=== PATIENT | female | born 1970 | race Caucasian/White ===

== ENCOUNTER 2018-06-17 08:43 | Outpatient (CLI) | payer BC, SELFPAY ==
--- NOTE | 2018-07-16 16:00 | MMO ---
Bilateral MAMMO Bilat Screen DDI+DEISY. CLINICAL HISTORY: Patient is 48 years old and is seen for screening. The patient has no family history of breast cancer. The patient has no personal history of cancer. VIEWS: The views performed were: bilateral craniocaudal with tomosynthesis; bilateral mediolateral oblique with tomosynthesis; and bilateral exaggerated craniocaudal. FILMS COMPARED: The present examination has been compared to prior imaging studies performed at [facility] on 04/21/2016 and 05/18/2016. MAMMOGRAM FINDINGS: There are scattered fibroglandular densities. Finding 1: There are stable benign appearing calcifications seen in both breasts. Finding 2: There is a new round mass measuring 7 millimeters with circumscribed margins seen in the MLO view only seen in the upper-outer region of the right breast. IMPRESSION: FINDING 1: STABLE CALCIFICATIONS IN BOTH BREASTS ARE BENIGN. FINDING 2: NEW MASS IN THE RIGHT BREAST REQUIRES ADDITIONAL EVALUATION. ADDITIONAL PROJECTIONS (RIGHT CRANIOCAUDAL SPOT COMPRESSION; RIGHT MEDIOLATERAL OBLIQUE SPOT COMPRESSION; AND RIGHT MEDIOLATERAL) ARE RECOMMENDED. AN ULTRASOUND EXAM IS RECOMMENDED IF NEEDED. ADDITIONAL IMAGING. THE RESULTS OF THIS EXAM WERE SENT TO THE PATIENT. ACR BI-RADS Category 0 - Incomplete: Need additional imaging evaluation. [facility] will notify the patient of the need for additional imaging services. MAMMOGRAPHY NOTE: 1. A negative mammogram report should not delay a biopsy if a dominant of clinically suspicious mass is present. 2. Approximately 10% to 15% of breast cancers are not detected by mammography. 3. Adenosis and dense breasts may obscure an underlying neoplasm.
== END 2018-06-17 08:44 | disposition home or self-care (01) ==
LOC: BICMAMMO 08:43
PROVIDERS: ATTEND Obstetrics & Gynecology
DX: Z12.31 Encounter for screening mammogram for malignant neoplasm of breast (principal); R92.1 Mammographic calcification found on diagnostic imaging of breast; N63.10 Unspecified lump in the right breast, unspecified quadrant
CPT/HCPCS: 77063; 77067

== ENCOUNTER 2018-07-22 14:31 | Outpatient (CLI) | payer BC ==
--- NOTE | 2018-07-22 15:49 | MMO ---
Right Breast MAMMO Unilat Diag DDI RT+DEISY. CLINICAL HISTORY: Patient is 48 years old and is seen for diagnostic exam. The patient has no family history of breast cancer. The patient has no personal history of cancer. VIEWS: The views performed were: right mediolateral oblique spot compression with tomosynthesis and right mediolateral with tomosynthesis. FILMS COMPARED: The present examination has been compared to prior imaging studies performed at [facility] on 06/17/2018 and 07/22/2018, and at [facility] on 04/21/2016 and 05/18/2016. MAMMOGRAM FINDINGS: There are scattered fibroglandular densities. There is a low density, oval mass with circumscribed margins seen in the right breast at 9 o'clock. This demonstrates mammographic and sonographic findings compatible with an intramammary lymph node. There are no suspicious masses, suspicious calcifications, or new areas of architectural distortion. IMPRESSION: THERE IS NO MAMMOGRAPHIC EVIDENCE OF MALIGNANCY. A ROUTINE FOLLOW-UP MAMMOGRAM IN 1 YEAR IS RECOMMENDED. THE RESULTS OF THIS EXAM WERE SENT TO THE PATIENT. ACR BI-RADS Category 2 - Benign finding MAMMOGRAPHY NOTE: 1. A negative mammogram report should not delay a biopsy if a dominant of clinically suspicious mass is present. 2. Approximately 10% to 15% of breast cancers are not detected by mammography. 3. Adenosis and dense breasts may obscure an underlying neoplasm.
--- NOTE | 2018-07-22 15:52 | ULT ---
LIMITED RIGHT BREAST ULTRASOUND: DATE: 07/22/2018. PROVIDED CLINICAL HISTORY: Abnormal mammogram. FINDINGS: Limited sonographic interrogation was performed of the right breast in the region of mammographic con cern. An intramammary lymph node is seen in this location, corresponding to the mammogram finding. IMPRESSION: BIRADS category 2 - benign findings. Annual screening mammography recommended. POS: OFF
== END 2018-07-22 14:32 | disposition home or self-care (01) ==
LOC: BICMAMMO 14:31
PROVIDERS: ATTEND Obstetrics & Gynecology
DX: N63.10 Unspecified lump in the right breast, unspecified quadrant (principal)
CPT/HCPCS: G0279

== ENCOUNTER 2018-08-06 09:29 | Outpatient (CLI) | payer BC ==
--- NOTE | 2018-08-06 10:23 | RAD ---
EXAM: Upper GI HISTORY: Weight gain. History of gastric sleeve procedure in the past. COMPARISON: 09/25/2008 EXPOSURE: 1.7 minutes; 19.517 Gy per centimeter squared FINDINGS: A double contrast upper GI was performed. Esophageal motility is normal. No mucosal lesions are seen in the esophagus. No extrinsic compression on the esophagus is seen. No hiatal hernia. Severe gastroesophageal reflux to the level of the cervical esophagus. The stomach is small but larger than on the prior examination immediately following her gastric sleev e. The contrast passes through the stomach into the duodenum without difficulty. The duodenum is normal in appearance without focal abnormality. IMPRESSION: 1. Smaller than normal stomach but the gastric sleeve appears to have expanded compared to the immedi ate postoperative exam. 2. Severe gastroesophageal reflux disease
== END 2018-08-06 09:30 | disposition home or self-care (01) ==
LOC: RAD 09:29
PROVIDERS: ATTEND Surgery
DX: K21.9 Gastro-esophageal reflux disease without esophagitis (principal)
CPT/HCPCS: 74247

== ENCOUNTER 2018-09-30 08:51 | Outpatient (CLI) | payer BC | END 2018-09-30 08:52 | disposition home or self-care (01) | LOC: LABBT 08:51 | PROVIDERS: ATTEND Obstetrics & Gynecology | DX: Z01.810 Encounter for preprocedural cardiovascular examination (principal) | CPT/HCPCS: 93005; 93010 ==

== ENCOUNTER 2018-09-30 09:00 | Inpatient (IN) | payer BC ==
[2018-09-30 09:18] VITALS: BMI 38.9
[2018-09-30 10:39] LABS: Hemoglobin 14.3 g/dL (12.0-16.0); Mean Corpuscular HGB CONC 34.2 g/dL (32.0-36.0); Mean Corpuscular Hemoglobin 30.5 pg (27.0-31.0); Mean Corpuscular Volume 89.1 fL (78.0-98.0); Mean Platelet Volume 7.8 fL (7.4-10.4); Platelet Count 250 thou/uL (130-400); RBC Distribution Width 11.3 % (11.5-14.5); Red Blood Cell (RBC) Count 4.69 mill/uL (4.20-5.40); White Blood Cell (WBC) Count 7.1 thou/uL (4.8-10.8)
--- NOTE | 2018-09-30 23:40 | HP ---
ANTICIPATED DATE OF SURGERY: In the morning on 10/01/2018. HISTORY OF PRESENT ILLNESS: Ms. Stevens is a 48-year-old white female, G2, P1, A1, prior , tubal ligation, and myomectomy of the uterus for uterine fibroid. She has been having increasing heavy menstrual bleeding over the past year and has noted uterine fibroids, which have persistently grown. She is desiring a definitive surgical therapy for this. She has very heavy flow at times, where she saturates a pad in less than an hour, and she is also having pelvic discomfort due to the pelvic pressure from the uterine fibroids. She has maternal aunt with ovarian cancer and desires removal of her tubes and ovaries at this measure too. PAST MEDICAL HISTORY: 1. She has had a recent cardiac ablation for inappropriate sinus tachycardia by Dr. Rice at [facility] on 09/09/2018. 2. She has also anxiety. PAST SURGICAL HISTORY: 1. She had 360-degree L5-S1 fusion with anterior abdominal approach in [address] Cole. 2. in 2004 by myself. 3. Myomectomy open in [address] Chatterjee in [facility]. 4. Tonsillectomy. 5. Adenoidectomy. 6. Ragland teeth. 7. Gastric sleeve. FAMILY HISTORY: Hypertension in her maternal aunt and uncle and grandmother. Coronary artery disease in a maternal aunt, maternal uncle, and her mother. Malignant tumor stomach in her father. SOCIAL HISTORY: Nonsmoker. No excessive alcohol use. CURRENT MEDICATIONS: 1. Alprazolam 0.25 mg p.o. t.i.d. 2. Corlanor 5 mg b.i.d. 3. Fluoxetine 20 mg daily. 4. Estradiol 2 mg daily. 5. Progesterone 100 mg daily. 6. DHEA slow-release 5 mg per day. 7. Testosterone cream vaginally daily. 8. Iron 29 mg daily. 9. CoQ10 of 50 mg daily. 10. Flaxseed 2 g daily. 11. Magnesium 500 mg daily. 12. Vitamin D 5000 units daily. PHYSICAL EXAMINATION: VITAL SIGNS: Her height is 5 feet 3 inches, weight is 219 pounds, BMI 38.8. Blood pressure 114/78, pulse 85, respirations 18, O2 saturation on room air 99%. HEENT: Within normal limits. CHEST: Clear to auscultation. HEART: Regular rate and rhythm. S1 and S2 heart sounds. No murmurs, rubs, or gallops. ABDOMEN: Soft, nontender. She has a around her old Pfannenstiel incision site. Well-healed trocar sites in the upper abdomen noted from her gastric sleeve. PELVIC: Vulva, vagina had no lesions. Cervix had no lesions. Uterus was 14 week size. It was mobile, irregular, consistent with fibroids. There was no cervical lesion seen. EXTREMITIES: Nontender. No masses or abnormal swelling. ASSESSMENT: This is a 48-year-old white female, G2, P1, A1 with symptomatic 14-week uterine fibroids with multiple abdominal surgeries in the past. PLAN: Plan is to proceed with robotic TLH-BSO with procedure for removal of the uterus. She is aware of the possibility and need for an open laparotomy with QUINTIN-BSO. Risks and benefits of procedure had been discussed in detail. She is set for surgery on 10/01/2018. Job ID: [id number]
[2018-10-01] MEDS ORDERED: Gabapentin 300 MG CAP ONE (06:20)
[2018-10-01] MEDS ORDERED: CeleCOXIB 100 MG CAP ONE (06:21)
[2018-10-01] MEDS ORDERED: Famotidine/PF 20 mg/2ml Vial ONE (06:21)
[2018-10-01] MEDS ORDERED: ceFAZolin Sodium (SDC) 2 GM/100 ML BAG ONE (06:21)
[2018-10-01] MEDS ORDERED: Bupivacaine HCl 0.5%/Epinephrine 1:200,000/PF 30 ml Vial ONE (06:33)
[2018-10-01] MEDS ORDERED: Midazolam HCl 2 mg/2 ml Vial ONE ×2 (06:37→07:18)
[2018-10-01] MEDS ORDERED: Fentanyl 100 MCG/2 ML VIAL ONE ×4 (06:37→11:41)
[2018-10-01] MEDS ORDERED: Promethazine HCl 25 MG/ML VIAL SLOW IVP PRN (10:12)
[2018-10-01] MEDS ORDERED: Ondansetron HCl/PF 4 MG/2 ML Vial IVP PRN (10:12)
[2018-10-01] MEDS ORDERED: Promethazine HCl 25 MG/ML VIAL IM PRN ×2 (10:12→10:18)
[2018-10-01] MEDS ORDERED: Bisacodyl 10 MG SUPP PR PRN (10:18)
[2018-10-01] MEDS ORDERED: Simethicone Chewable 80 MG TAB PO PRN (10:18)
[2018-10-01] MEDS ORDERED: traMADol HCl 50 MG TAB PO PRN (10:18)
[2018-10-01] MEDS ORDERED: diphenhydrAMINE 25 MG CAP PO PRN (10:18)
[2018-10-01] MEDS ORDERED: Ondansetron PF 4 MG/2 ML Vial IVP PRN (10:18)
[2018-10-01] MEDS ORDERED: Morphine 4 MG/ML VIAL SLOW IVP PRN (10:18)
[2018-10-01] MEDS ORDERED: Promethazine HCl 25 MG/ML VIAL ONE (10:52)
--- NOTE | 2018-10-01 12:20 | OP ---
DATE OF PROCEDURE: 10/01/2018 PREOPERATIVE DIAGNOSES: 1. A 48-year-old white female, G2, P1, A1, prior section and myomectomy with symptomatic 12-to 14-week uterine fibroids. 2. Menorrhagia for fibroids. 3. Prior anterior abdominal approach for lower spine fusion and multiple other abdominal surgeries. POSTOPERATIVE DIAGNOSES: 1. A 48-year-old white female, G2, P1, A1, prior section and myomectomy with symptomatic 12-to 14-week uterine fibroids. 2. Menorrhagia for fibroids. 3. Prior anterior abdominal approach for lower spine fusion and multiple other abdominal surgeries. PROCEDURES PERFORMED: Robotic total laparoscopic hysterectomy with bilateral salpingo-oophorectomy along with ExCITE procedure for removal of the uterine tissue. PROTECTION OFFICER SURGEON: Ap King DO, MS ANESTHESIA: General endotracheal. ESTIMATED BLOOD LOSS: 25 mL. COMPLICATIONS: None. COUNTS: Correct x2. ANTIBIOTICS: 2 g of Ancef, on-call to OR. PATHOLOGY: Uterus, cervix, bilateral tubes and ovaries. FINDINGS: 1. Normal-appearing bilateral fallopian tubes and ovaries. 2. A 12-week irregular-shaped uterus consistent with uterine myoma. 3. Clear urine present in Zarco catheter postprocedure and bladder was watertight to distention over 300 mL postprocedure. 4. Bilateral ureteral peristalsis noted postprocedure. DISPOSITION: Recovery room, stable. DESCRIPTION OF PROCEDURE: The patient previously received informed consent in regard to surgery. She was taken back to the operating room, where she received general endotracheal anesthetic agent without complications. She was placed in the dorsal lithotomy position with use of Amrik stirrups and prepped and draped in usual sterile fashion. Zarco catheter was placed at this time and a side-arm speculum was placed in the vagina. Anterior lip of the cervix was grasped with single-tooth tenaculum. Uterus sounded to 11 cm. A size 10-cm ALYSSA uterine manipulator with 3.5 cm cuff was then placed in usual fashion. Attention was then turned to the abdomen, where perspective trocar sites were infiltrated with 0.5% Marcaine with epinephrine. A 2.5 cm supraumbilical abdominal midline incision was made. This carried down to the fascia. Veress needle was then entered into the abdomen and the patient's pressure was less than 5 mm. Abdomen was insufflated with the patient's pressure of 15 approximately 4 L of carbon dioxide gas. A 12-mm trocar was then placed. The laparoscope was introduced through the trocar sleeve confirming proper entry. There was no significant adhesions noted. Then, additional bilateral lower quadrant 8-mm robotic trocars were placed along with a right upper quadrant 11-mm bioinformatics assistant port. We then extended the fascial defect in the midline abdominal incision approximately 2.5 cm and then the small Oracio O retractor was placed along with a GelPOINT cap. The trocar for the laparoscope was introduced through the gel prior to this and attached. A prepared medium size Aces bag had been folded in accordion-shaped fold and sutured and this had been placed in the right upper quadrant for the tissue removal later for the procedure. The patient was in deep Trendelenburg and the laparoscope was then introduced through the GelPOINT trocar sleeve. The robot was then docked in usual fashion. I proceeded to carry out the surgery from the operative console while my assistants remained at the bedside. At this time, the RaftOut uterine manipulator elevated the uterus from the pelvis. My bioinformatics assistant grasped the left fallopian tube. Course of the ureter was noted to be inferior from the operative site. Bipolar fenestrated cautery was utilized to coagulate the left infundibulopelvic ligament, was transected with monopolar scissors. Serial coagulation hugging close to uterus was carried out with the bipolar fenestrated cautery and monopolar scissors until the left round ligament was reached. It was coagulated and transected and anterior leaf of the broad ligament was entered. The skeletonization of the uterine vessels was also carried out at this time, dropping the ureter more lateral to waive towards the pelvic sidewall away from the specimen. An atraumatic plane of the bladder was delineated by distending the bladder and the position was noted due to previous section. The vesicouterine peritoneum was incised under direct visualization and layering of this was carried out, dropping the bladder safely past the cervical vaginal angle in junction which was visualized with the indentation of the cervical manipulator cup. The uterine vessels after having been skeletonized were then coagulated in the internal cervical os region with bipolar fenestrated cautery. This was then carried down in like-apodaca manner on the right side of the uterus. Again, the right IP ligament was coagulated and transected. Serial coagulation of broad ligament to the right round ligament was carried out and coagulated, transected. Anterior leaf of the broad ligament was entered. Vesicouterine peritoneum was again incised in similar fashion and in layering technique dropping the bladder well past the cervical vaginal margin and again the vessels of the uterine arteries were skeletonized and then coagulated in the internal cervical os region. The bladder had been distended intermittently during this time and was noted to be watertight through all. Once we felt the bladder had been safely dissected past the planned anterior colpotomy, the anterior colpotomy was then created over the cervical cup indentation starting at 12 o'clock to 3 o'clock and the vessels again were coagulated for hemostasis in this area at 12 o'clock to 9 o'clock position. Then, the uterus was flipped forward and the posterior colpotomy was completed from 6 o'clock to 3 o'clock and 6 o'clock to 9 o'clock. Hemostasis on the cuff line was noted to be hemostatic in the vessels during this time. The specimen was then taken off the ALYSSA uterine manipulator as the bulb was deflated. The ALYSSA uterine manipulator was brought out into the vaginal vault and the balloon of the ALYSSA manipulator was reinflated keeping the pneumoperitoneum. Monopolar scissor was switched out for a needle production truck driver. A Stratafix suture was brought down into the pelvis by my bioinformatics assistant. Cauterization of any areas of oozing and bleeding on the vaginal cuff were carried out at this time securing hemostasis on the cuff line. The cuff of the vagina was then closed in full-thickness closure starting on the right angle and then back towards the left angle and then towards the midline, securing hemostasis. The excess suture and needle were then removed through the right upper quadrant bioinformatics assistant port. Pelvis again was irrigated to suction and noted to be hemostatic. Bilateral ureteral peristalsis was visualized. The bladder was draining clear urine and was watertight to distention. Next, the Aces bag that had previously been folded repaired. The right upper quadrant was brought down into the pelvis. My bioinformatics assistant then cut the stay sutures, opening the bag. We then placed the specimen inside the Aces bag and the previously tied loop with string was brought through closing in a purse closure technique. My bioinformatics assistant then brought in an atraumatic grasper through the GelPOINT and has grasped the drawstring of the Aces bag and brought that up towards the port of the GelPOINT midline abdominal incision. I then broke from the surgical console and re-gowned and then we undocked the robot. We brought the Aces bag up through the GelPOINT aperture, which had been opened. The bag containing the specimen was then delivered through the GelPOINT trocar. We then replaced the small Aces retractor inside the bag to protect it during the morcellation process. The specimen was then grasped with Reece thyroid clamps and in a seat incision technique, the specimen was delivered in toto and sent for final pathology. The bag remained intact and was delivered through the fascial defect. The small Aces retractor was then removed. The fascia was then closed after grasping the superior edge with a Elpidio clamp. 0 Vicryl suture in running continuous fashion closed the fascial defect in the midline vertical portion of the abdomen. Subcuticular suture was then used to close all the skin incisions along with Dermabond. The vaginal exam with the sponge stick revealed hemostasis in the vaginal region. The patient was awakened from anesthesia and transferred to recovery room in stable condition. Job ID: [id number]
[2018-10-01] MEDS: Ketorolac Tromethamine 30 MG/ML VIAL IVP SCH ×2 (13:05→18:34)
[2018-10-01] MEDS: Lactated Ringer's 1,000 ML IV SCH ×2 (14:59→22:00)
[2018-10-01] MEDS: ALPRAZolam 0.25 MG TAB PO PRN (15:55)
[2018-10-01] MEDS: Ivabradine 5 MG TAB PO SCH (17:00)
[2018-10-01] MEDS ORDERED: ALPRAZolam 0.25 MG TAB PO SCH (19:30)
[2018-10-01] MEDS ORDERED: FLUoxetine HCl 20 MG CAP PO SCH (19:30)
[2018-10-01] MEDS ORDERED: Magnesium Oxide 250 MG TAB PO SCH (21:00)
[2018-10-01] MEDS: Ubidecarenone 50 MG CAP PO SCH (21:29)
[2018-10-01] MEDS: traMADol HCl 50 MG TAB PO PRN (22:17)
[2018-10-02] MEDS ORDERED: Sodium Chloride 0.9% 10 ML ONE (00:38)
[2018-10-02] MEDS: ALPRAZolam 0.25 MG TAB PO PRN ×2 (00:49→06:28)
[2018-10-02] MEDS: Ketorolac Tromethamine 30 MG/ML VIAL IVP SCH ×2 (00:50→06:28)
[2018-10-02 04:30] LABS: Hemoglobin 12.2 g/dL (12.0-16.0); Mean Corpuscular HGB CONC 35.6 g/dL (32.0-36.0); Mean Corpuscular Hemoglobin 32.3 pg (27.0-31.0); Mean Corpuscular Volume 90.8 fL (78.0-98.0); Mean Platelet Volume 7.7 fL (7.4-10.4); Platelet Count 209 thou/uL (130-400); RBC Distribution Width 11.2 % (11.5-14.5); Red Blood Cell (RBC) Count 3.77 mill/uL (4.20-5.40); White Blood Cell (WBC) Count 8.5 thou/uL (4.8-10.8)
[2018-10-02] MEDS: traMADol HCl 50 MG TAB PO PRN (04:37)
[2018-10-02 05:56] VITALS: BP 111/67; TEMP 97.8
[2018-10-02] MEDS: Lactated Ringer's 1,000 ML IV SCH (07:41)
[2018-10-02] MEDS: Ubidecarenone 50 MG CAP PO SCH (07:43)
[2018-10-02] MEDS: Ivabradine 5 MG TAB PO SCH (07:44)
[2018-10-02] MEDS ORDERED: [UNRECOGNIZED DRUG - OTHER] PO SCH (09:00)
[2018-10-02] MEDS ORDERED: DHEA PO SCH (09:00)
[2018-10-02] MEDS ORDERED: FLAXSEED OIL 2000 MG PO SCH (09:00)
[2018-10-02] MEDS ORDERED: Ferrous Sulfate 325 MG TAB PO SCH (09:00)
[2018-10-02] MEDS ORDERED: FLUoxetine HCl 20 MG CAP PO SCH (09:00)
[2018-10-02] MEDS ORDERED: [UNRECOGNIZED DRUG - OTHER] VAG SCH (09:00)
[2018-10-02] MEDS ORDERED: Multivit, Therapeutic 1 TAB PO SCH (09:00)
[2018-10-02] MEDS ORDERED: Estradiol 1 MG TAB PO SCH (09:00)
--- NOTE | 2018-10-02 12:22 | DIS ---
DATE OF ADMISSION: 10/01/2018 DATE OF DISCHARGE: 10/02/2018 DIAGNOSES: 1. Symptomatic 12-to 14-week uterine fibroids. 2. Menorrhagia and pelvic pain. SUMMARY OF HOSPITAL COURSE: Ms. Stevens is a 48-year-old female with long history of uterine fibroids, which worsened with heavy bleeding and pelvic discomfort. She underwent definitive surgical therapy on 10/01/2018. She had a robotic total laparoscopic hysterectomy and bilateral salpingo-oophorectomy via removal of tissue with ExCITE procedure. The patient has done well postoperatively. She was ambulating and voiding without difficulty in the evening of postop day 0. Pain control was adequately controlled with oral pain medications. She was discharged in the morning of postop day #1. Vital signs are stable. Hematocrit is 35%. She has excellent urine output and pain control with oral ibuprofen and tramadol as needed. Pathology is pending at the time of this dictation. She has a followup in 2 and 6 weeks postoperatively. Job ID: [id number]
== END 2018-10-02 08:20 | disposition home or self-care (01) | DRG 743 ==
LOC: SURG A 10-01 05:55 → 3SE 10-01 12:09
PROVIDERS: ADMIT Obstetrics & Gynecology; ATTEND Obstetrics & Gynecology
PROC: 0UT94ZZ Resection of Uterus, Percutaneous Endoscopic Approach (ICD-10-PCS; principal; 2018-10-01)
PROC: 0UT24ZZ Resection of Bilateral Ovaries, Percutaneous Endoscopic Approach (ICD-10-PCS; 2018-10-01)
PROC: 0UT74ZZ Resection of Bilateral Fallopian Tubes, Percutaneous Endoscopic Approach (ICD-10-PCS; 2018-10-01)
PROC: 8E0W4CZ Robotic Assisted Procedure of Trunk Region, Percutaneous Endoscopic Approach (ICD-10-PCS; 2018-10-01)
DX: D25.9 Leiomyoma of uterus, unspecified (principal); Z98.51 Tubal ligation status; Z79.899 Other long term (current) drug therapy; Z79.890 Hormone replacement therapy
CPT/HCPCS: 36415; 85027; 86850; 86900; 86901; 88307; 93005; 93010; J0670; J0690; J1885; J2250; J2550; J3010; S0028

== ENCOUNTER 2020-06-15 08:27 | Observation (INO) | payer BC, OTHER ==
[2020-06-15 09:16] LABS: #Basophils 0.1 thou/uL (0.0-0.2); #Eosinphils 0.3 thou/uL (0.0-0.7); #Lymphocytes 1.7 thou/uL (1.20-3.40); #Monocytes 0.3 thou/uL (0.11-0.59); #Neutrophils 2.2 thou/uL (1.40-6.50); %Basophils 1.7 % (0.0-1.0); %Eosinophils 5.7 % (0.0-10.0); %Lymphocytes 37.5 % (21.0-51.0); %Monocytes 6.3 % (0.0-10.0); %Neutrophils 48.8 % (42.0-75.0); Hemoglobin 14.3 g/dL (12.0-16.0); Mean Corpuscular HGB CONC 33.5 g/dL (32.0-36.0); Mean Corpuscular Hemoglobin 30.9 pg (27.0-31.0); Mean Corpuscular Volume 92.5 fL (78.0-98.0); Mean Platelet Volume 8.1 fL (7.4-10.4); Platelet Count 216 thou/uL (130-400); RBC Distribution Width 11.6 % (11.5-14.5); Red Blood Cell (RBC) Count 4.62 mill/uL (4.20-5.40); White Blood Cell (WBC) Count 4.6 thou/uL (4.8-10.8)
[2020-06-15] MEDS ORDERED: Iopamidol-370 76% 500 ML 1 ML ONE (09:40)
[2020-06-15 10:24] LABS: Alkaline Phosphatase 141 U/L (40-110); Anion Gap 12 mmol/L (10-20); Bilirubin, Total 0.6 mg/dL (0.2-1.2); Carbon Dioxide 25 mmol/L (22-29); Globulin 3.7 g/dL (2.4-3.5); Glucose 89 mg/dL (70-105); Protein, Total 8.1 g/dL (6.0-8.3)
[2020-06-15 10:25] LABS: BUN (Urea Nitrogen) 10 mg/dL (7.0-18.7); Calc. Creatinine Clearance 0 mL/min (70-130)
[2020-06-15 10:45] LABS: Albumin 4.4 g/dL (3.5-5.0); Calcium 8.8 mg/dL (7.8-10.44); Chloride 105 mmol/L (98-107); Potassium 5.3 mmol/L (3.5-5.1); Sodium 137 mmol/L (136-145)
[2020-06-15 10:46] LABS: ALT (SGPT) 104 U/L (8-55); AST (SGOT) 97 U/L (5-34)
[2020-06-15] MEDS ORDERED: Aspirin Chewable 81 MG TAB ONE (12:12)
[2020-06-15 13:23] LABS: Troponin I Less than 0.010 ng/mL (< 0.028)
[2020-06-15 14:10] VITALS: BMI 29.2
[2020-06-15] MEDS ORDERED: Ondansetron PF 4 MG/2 ML Vial IVP PRN (14:30)
[2020-06-15] MEDS ORDERED: Ondansetron ODT 4 MG TAB SL PRN (14:30)
[2020-06-15] MEDS ORDERED: Nitroglycerin 0.4 MG TAB (25 Tab Bottle) SL PRN (15:00)
[2020-06-15 15:47] LABS: Troponin I Less than 0.010 ng/mL (< 0.028)
[2020-06-15] MEDS ORDERED: traMADol HCl 50 MG TAB PO PRN (16:37)
[2020-06-15] MEDS ORDERED: Ibuprofen 600 MG TAB PO PRN (16:50)
[2020-06-15 17:12] VITALS: BP 122/65; TEMP 98.1
[2020-06-15] MEDS ORDERED: Ivabradine 5 MG TAB PO SCH (21:00)
[2020-06-15] MEDS ORDERED: clonazePAM 1 MG TAB PO SCH (21:00)
[2020-06-15] MEDS ORDERED: Progesterone,Micronized 100 MG CAP PO SCH (21:00)
[2020-06-16] MEDS ORDERED: Aspirin Chewable 81 MG TAB PO SCH (09:00)
[2020-06-16] MEDS ORDERED: clonazePAM 0.5 MG TAB PO SCH (09:00)
[2020-06-16] MEDS ORDERED: Liothyronine Sodium 5 MCG TAB PO SCH (09:00)
[2020-06-16] MEDS ORDERED: predniSONE 50 MG TAB PO SCH (20:00)
[2020-06-17] MEDS ORDERED: diphenhydrAMINE 50 MG CAP PO SCH (08:00)
== END 2020-06-15 18:30 | disposition home or self-care (01) ==
LOC: ERS 08:27 → 2SW 12:30
PROVIDERS: ADMIT Emergency Medicine; ATTEND Emergency Medicine
DX: R07.89 Other chest pain (principal); I47.1 Supraventricular tachycardia; K21.9 Gastro-esophageal reflux disease without esophagitis; I25.10 Atherosclerotic heart disease of native coronary artery without angina pectoris; I10 Essential (primary) hypertension; E78.5 Hyperlipidemia, unspecified; E03.9 Hypothyroidism, unspecified; Z79.899 Other long term (current) drug therapy; Z88.6 Allergy status to analgesic agent; Z98.84 Bariatric surgery status
CPT/HCPCS: 36415; 71046; 71275; 80053; 83690; 83880; 84484; 85025; 93005; G0378; Q9967

== ENCOUNTER 2021-03-04 09:24 | Outpatient (CLI) | payer OTHER | END 2021-03-04 09:25 | disposition home or self-care (01) | LOC: BICMAMMO 09:24 | PROVIDERS: ATTEND Obstetrics & Gynecology | DX: Z12.31 Encounter for screening mammogram for malignant neoplasm of breast (principal) | CPT/HCPCS: 77063; 77067 ==

== ENCOUNTER 2022-11-21 12:31 | Outpatient (CLI) | payer OTHER | END 2022-11-21 12:32 | disposition home or self-care (01) | LOC: ULT 12:31 | DX: R06.02 Shortness of breath (principal); R53.83 Other fatigue; I47.19 Other supraventricular tachycardia | CPT/HCPCS: 93306 ==